=== PATIENT | female | born 2000 | race Caucasian/White ===

== ENCOUNTER 2018-05-15 10:58 | Emergency (ER) | payer SELFPAY ==
--- NOTE | 2018-05-15 11:16 | ED ---
Breast Complaint - HPI Summary HPI Summary: 17 year old female presents with bilateral breast tenderness and upper back pain for past 5-7 days. States pain is constant. Describes as "ache and tender to touch". Non-radiating. Denies aggravating or alleviating factors. She has noted a small "pimple" to the underside of her left breast otherwise denies any lumps or masses. LMP 2 weeks ago. She is on OBC and also uses condoms consistently. States she took a home test 2 days ago which was negative. Denies fever, chills, erythema of the breasts, nipple discharge, chest pain, shortness of breath, abdominal pain, nausea, or vomiting. - History of Current Complaint Hx Obtained From: Patient Breast Chief Complaint: Pain - Bilateral upper breast and upper back pain Onset/Duration: Started Days Ago Timing: Constant Breast Pain Aggravating Factors: Nothing Breast Pain Alleviating Factors: Nothing Breast Associated Signs/Symptoms: Negative - Allergy/Home Medications Allergies/Adverse Reactions: Allergies Allergy/AdvReac Type Severity Reaction Status Date / Time codeine Allergy Vomiting Verified 05/15/18 11:14 Home Medications: Home Medications Norethindrone [Elaina] 0.35 mg PO DAILY 05/15/18 [History Confirmed 05/15/18] PMH/Surg Hx/FS Hx/Imm Hx Previously Healthy: Yes - Denies significant PMH Infectious Disease History: No Infectious Disease History: Denies: Traveled Outside the [place] in Last 30 Days - Family History Known Family History: Positive: Non-Contributory - Social History Occupation: Student Lives: Dormitory/Roommates Review of Systems Negative: Fever, Chills Negative: Sore Throat, Nasal Discharge Negative: Palpitations, Chest Pain Negative: Shortness Of Breath, Cough Negative: Abdominal Pain, Vomiting, Nausea Skin: Negative All Other Systems Reviewed And Are Negative: Yes Physical Exam - Summary Physical Exam Summary: GENERAL APPEARANCE: Well developed, well nourished, alert and cooperative, and appears to be in no acute distress. NECK: Neck supple, non-tender without lymphadenopathy. CARDIAC: Normal S1 and S2. No S3, S4 or murmurs. Rhythm is regular. There is no peripheral edema, cyanosis or pallor. Extremities are warm and well perfused. Capillary refill is less than 2 seconds. LUNGS: Clear to auscultation without rales, rhonchi, wheezing or diminished breath sounds. CHEST: No chest deformity. Tenderness across the upper chest with palpation. BREAST: Bilateral breasts symmetric with normal contours. Single, superficial, erythematous, papular lesion to the inferior left breast. No dimpling, nodules, masses, nipple discharge, or axillary lymphadenopathy. ABDOMEN: Positive bowel sounds. Soft, nondistended, nontender. No guarding or rebound. No masses or hepatosplenomegally. MUSKULOSKELETAL: ROM intact to all extremities. Normal muscular development. Normal gait. BACK: Examination of the spine reveals normal gait and posture, no spinal deformity, decreased range of motion or muscular spasm. Mild soft tissue tenderness of the upper thoracic back. EXTREMITIES: No significant deformity or joint abnormality. No edema. Peripheral pulses intact. NEUROLOGICAL: Strength and sensation symmetric and intact throughout. SKIN: Skin normal color, texture and turgor with no lesions or eruptions. Triage Information Reviewed: Yes Vital Signs On Initial Exam: Initial Vitals Temp Pulse Resp BP Pulse Ox 99 F 94 20 153/84 95 05/15/18 10:59 05/15/18 10:59 05/15/18 10:59 05/15/18 10:59 05/15/18 10:59 Vital Signs Reviewed: Yes Diagnostics - Vital Signs Vital Signs Temp Pulse Resp BP Pulse Ox 05/15/18 10:59 99 F 94 20 153/84 95 - Laboratory Lab Statement: Any lab studies that have been ordered have been reviewed, and results considered in the medical decision making process. Breast Pain Course/Dx - Course Course Of Treatment: 17 year old female presents with bilateral breast tenderness and upper back pain for past 5-7 days. States pain is constant. Describes as "ache and tender to touch". Non-radiating. Denies aggravating or alleviating factors. She has noted a small "pimple" to the underside of her left breast otherwise denies any lumps or masses. LMP 2 weeks ago. She is on OBC and also uses condoms consistently. States she took a home test 2 days ago which was negative. Denies fever, chills, erythema of the breasts, nipple discharge, chest pain, shortness of breath, abdominal pain, nausea, or vomiting. Afebrile. VSS. Well appearing adult female in no acute distress. Exam unremarkable except for some upper chest wall and upper back soft tissue tenderness. Suspect symptoms are musculoskeletal in origin. Recommending conservative treatment with OTC NSAIDs. Patient is to follow up with [facility] in 7 days if symptoms persist. Warning symptoms reviewed with patient. Verbalizes understanding and agrees with POC. - Diagnoses Provider Diagnoses: Chest wall pain, Upper back pain Discharge - Sign-Out/Discharge Documenting (check all that apply): Patient Departure - Discharge Plan Condition: Stable Disposition: HOME Patient Education Materials: Back Pain (ED), Chest Wall Pain (ED) Referrals: [facility] - Aramis LAM [Primary Care Provider] - 7 Days (If no improvement in symptoms.) Additional Instructions: The breast exam performed in the emergency room today did not reveal any concerning lumps, masses, or swollen lymph nodes. I suspect that your pain is musculoskeletal. Take over the counter ibuprofen (Advil, Motrin) or naproxen (Aleve) according to directions as needed for pain. Follow up with [facility] if your symptoms persist. Return to the emergency room if you develop fever greater than 100.5 F, redness or swelling of the breasts, discharge from the nipples, have worsening chest pain, difficulty breathing, abdominal pain, persistent vomiting, or any worsening of symptoms. - Billing Disposition and Condition Condition: STABLE Disposition: Home
[2018-05-15 11:47] VITALS: BP 132/79
== END 2018-05-15 11:46 | disposition home or self-care (01) ==
LOC: ED 10:58
DX: R07.89 Other chest pain (principal); M54.89 Other dorsalgia; Z88.5 Allergy status to narcotic agent
CPT/HCPCS: 99282

== ENCOUNTER 2019-04-02 20:00 | Emergency (ER) | payer OTHER ==
[2019-04-02] MEDS ORDERED: Ondansetron INJ* 2 MG/ML VIAL IV ONE (20:13)
[2019-04-02] MEDS ORDERED: Ketorolac INJ* 15 MG/ML 1 ML VIAL IV ONE (20:13)
[2019-04-02] MEDS ORDERED: NS 0.9% 1000 ML** 1,000 ML IV ONE ×2 (20:13→21:36)
[2019-04-02] MEDS ORDERED: Ketorolac INJ* 30 MG/ML 1 ML VIAL IM ONE (20:22)
--- NOTE | 2019-04-02 20:36 | ED ---
GI/ HPI - HPI Summary HPI Summary: 18 year old female presents with lower abdominal pain today. States that is intermittent. She states been changing locations. States sometimes is sharp and sometimes is crampy. She's never had this pain before. Did have an episode diarrhea. No nausea vomiting. No recent antibiotic use. She doesn't take anything for his symptoms. States pain is currently 6 out of 10. She admits to urgency but no dysuria. Had a negative urine and at urgent care. Denies any abnormal vaginal discharge. Patient is sexually active. No previous abdominal surgeries. Has a history of asthma. - History of Current Complaint Chief Complaint: EDAbdPain Time Seen by Provider: 04/02/19 20:13 Stated Complaint: LOW ABD PAIN PER PT Pain Intensity: 7 - Allergy/Home Medications Allergies/Adverse Reactions: Allergies Allergy/AdvReac Type Severity Reaction Status Date / Time codeine Allergy Vomiting Verified 04/02/19 20:06 Home Medications: Home Medications Dicyclomine HCl 15 ml PO DAILY 04/02/19 [History Confirmed 04/02/19] Montelukast Sodium TAB* [Singulair TAB*] 10 mg PO DAILY PRN 04/02/19 [History Confirmed 04/02/19] PMH/Surg Hx/FS Hx/Imm Hx Endocrine/Hematology History: Denies: Hx Anticoagulant Therapy Respiratory History: Denies: Hx Asthma Infectious Disease History: No Infectious Disease History: Denies: Traveled Outside the [place] in Last 30 Days - Family History Known Family History: Positive: Non-Contributory - Social History Alcohol Use: Occasionally Substance Use Type: Reports: None Smoking Status (MU): Never Smoked Tobacco Review of Systems Negative: Fever Negative: Chest Pain Negative: Shortness Of Breath Positive: Abdominal Pain, Diarrhea. Negative: Vomiting, Nausea All Other Systems Reviewed And Are Negative: Yes Physical Exam Triage Information Reviewed: Yes Vital Signs On Initial Exam: Initial Vitals Temp Pulse Resp BP Pulse Ox 99.1 F 94 18 137/93 99 04/02/19 20:02 04/02/19 20:02 04/02/19 20:02 04/02/19 20:02 04/02/19 20:02 Vital Signs Reviewed: Yes Appearance: Positive: Well-Appearing Skin: Positive: Warm, Dry Head/Face: Positive: Normal Head/Face Inspection Eyes: Positive: Normal, Conjunctiva Clear ENT: Positive: Pharynx normal Respiratory/Lung Sounds: Positive: Clear to Auscultation, Breath Sounds Present Cardiovascular: Positive: Normal, RRR Abdomen Description: Positive: Soft, Other: - tenderness periumbilically Bowel Sounds: Positive: Present Musculoskeletal: Positive: Normal Neurological: Positive: Normal Psychiatric: Positive: Normal Procedures - Sedation Patient Received Moderate/Deep Sedation with Procedure: No Diagnostics - Vital Signs Vital Signs Temp Pulse Resp BP Pulse Ox 04/02/19 20:02 99.1 F 94 18 137/93 99 - Laboratory Result Diagrams: 04/02/19 20:24 04/02/19 20:24 Lab Statement: Any lab studies that have been ordered have been reviewed, and results considered in the medical decision making process. - Ultrasound No standard instances Ultrasound Interpretation Completed By: Radiologist Summary of Ultrasound Findings: IMPRESSION: 1. Endometrial stripe thickness is 7 mm and appears otherwise unremarkable. 2. There is a simple appearing cyst in the left ovary measuring a maximum of 4.9 cm. Re-Evaluation - Re-Evaluation First Eval Change: Improved Comment: pain mostly LLQ now GIGU Course/Dx - Course Course Of Treatment: 18 year old female presents with lower abdominal pain today. States that is intermittent. She states been changing locations. States sometimes is sharp and sometimes is crampy. She's never had this pain before. Did have an episode diarrhea. No nausea vomiting. No recent antibiotic use. She doesn't take anything for his symptoms. States pain is currently 6 out of 10. She admits to urgency but no dysuria. Had a negative urine and at urgent care. Denies any abnormal vaginal discharge. Patient is sexually active. No previous abdominal surgeries. Has a history of asthma. on exam tenderness periumbilical. nontender RLQ. wbc normal. crp normal. low suspicion for appenditis. u/s shows left ovarian cyst. told to take tyenlol or ibuprofen. patient understand and agrees with plan. - Diagnoses Differential Diagnoses - Female: Appendicitis, Gastroenteritis (Viral), Ovarian Cyst Provider Diagnoses: Ovarian cyst Discharge ED - Sign-Out/Discharge Documenting (check all that apply): Patient Departure - Discharge Plan Condition: Good Disposition: HOME Patient Education Materials: Ovarian Cyst (ED) Referrals: [facility] - Aramis LAM [Primary Care Provider] - Additional Instructions: Take Tylenol or ibuprofen every 6 hours for pain Apply heat Follow up with [facility] Return to ED if develop any new or worsening symptoms - Billing Disposition and Condition Condition: GOOD Disposition: Home
[2019-04-02 20:41] LABS: ABS Basophils 0.1 10^3/ul (0-0.2); ABS Eosinophils 0.1 10^3/ul (0-0.6); ABS Lymphocytes 2.1 10^3/ul (1.0-4.8); ABS Monocytes 0.4 10^3/ul (0-0.8); ABS Neutrophils 5.8 10^3/ul (1.5-7.7); Eosinophil % 1.5 %; Hematocrit 39 % (35-47); Hemoglobin 13.2 g/dL (12.0-16.0); Lymphocyte % 25.1 %; Mean Corpuscular HGB Conc 34 g/dL (31-36); Mean Corpuscular Hemoglobin 29 pg (27-31); Mean Corpuscular Volume 86 fL (80-97); Mean Platelet Volume 9.6 fL (7.4-10.4); Nucleated Red Blood Cells % 0.1; Platelet Count 309 10^3/uL (150-450); Red Blood Count 4.55 10^6 /uL (3.70-4.87); Red Cell Distribution Width 13 % (10-15); White Blood Count 8.4 10^3/uL (3.5-10.8)
[2019-04-02 21:01] LABS: ALT 18 U/L (7-52); AST 20 U/L (13-39); Albumin 4.5 g/dL (3.2-5.2); Albumin/Globulin Ratio 1.7 (1-3); Alkaline Phosphatase 50 U/L (34-104); Anion Gap 8 mmol/L (2-11); BUN/Creatinine Ratio 10.3 (8-20); Blood Urea Nitrogen 7 mg/dL (6-24); CO2 Carbon Dioxide 21 mmol/L (22-32); Calcium 9.3 mg/dL (8.6-10.3); Chloride 108 mmol/L (101-111); EGFR African American 133.5 (>60); EGFR Non-African American 110.3 (>60); Globulin 2.7 g/dL (2-4); Glucose 94 mg/dL (70-100); Sodium 137 mmol/L (135-145); Total Protein 7.2 g/dL (6.4-8.9)
[2019-04-02 21:06] LABS: HCG Pregnancy < 0.60 mIU/mL
[2019-04-02 22:03] LABS: Urine Appearance Cloudy; Urine Bacteria Absent (Absent); Urine Bilirubin Negative (Negative); Urine Blood 2+ (Negative); Urine Color Yellow; Urine Glucose Negative (Negative); Urine Ketones Trace (Negative); Urine Nitrite Negative (Negative); Urine Protein Negative (Negative); Urine Red Blood Cell 2+(6-10/hpf) (Absent); Urine Specific Gravity 1.023 (1.010-1.030); Urine Squamous Epithelial Cell Present (Absent); Urine Urobilinogen Negative (Negative); Urine White Blood Cell Absent (Absent)
[2019-04-03 01:16] VITALS: BP 130/88
== END 2019-04-03 01:10 | disposition home or self-care (01) ==
LOC: ED 20:00
DX: N83.202 Unspecified ovarian cyst, left side (principal); Z79.899 Other long term (current) drug therapy; Z88.5 Allergy status to narcotic agent
CPT/HCPCS: 36415; 76856; 80053; 81003; 81015; 83605; 83690; 84702; 85025; 86140; 96361; 96372; 96374; 96375; 99283; J1885

== ENCOUNTER 2019-04-27 22:58 | Emergency (ER) | payer OTHER ==
--- NOTE | 2019-04-27 23:11 | ED ---
Shortness of Breath - HPI Summary HPI Summary: 18-year-old female with significant past medical history of asthma which is well controlled with albuterol rescue inhaler presented to the emergency department with a chief complaint of shortness of breath 3 days. She states 3 days ago she was cleaning a bathtub with bleach and then shortly after began having mild shortness breath and chest pain. She was recently she had become afraid of the symptoms and decided to come into the emergency department. States for the last few days she has developed a dry cough and "chest tightness " in the upper sternum. She states she used her albuterol inhaler and allergy medication with mild relief of symptoms. She states she stopped taking her oral contraceptives one month ago. She denies recent travel, surgery, immobilization. Family history is noncontributory. She admits to light alcohol use but denies tobacco or recreational drug use. She denies fever, abdominal pain, pain with urination, joint pain, rash, headache, lightheadedness. - History of Current Complaint Chief Complaint: EDShortnessOfBreath Time Seen by Provider: 04/27/19 23:11 Hx Obtained From: Patient Onset/Duration: Gradual Onset, Lasting Days Timing: Constant Current Severity: Mild Dyspnea At: Exertion Aggravating Factors: Movement Alleviating Factors: Bronchodilators, OTC Meds Associated Signs & Symptoms: Cough (Nonproductive), Chest Pain w/Cough - Allergy/Home Medications Allergies/Adverse Reactions: Allergies Allergy/AdvReac Type Severity Reaction Status Date / Time codeine Allergy Vomiting Verified 04/27/19 23:03 PMH/Surg Hx/FS Hx/Imm Hx Endocrine/Hematology History: Denies: Hx Anticoagulant Therapy Respiratory History: Denies: Hx Asthma, Hx Pulmonary Embolism Infectious Disease History: No Infectious Disease History: Denies: Traveled Outside the [place] in Last 30 Days - Family History Known Family History: Positive: Non-Contributory - Social History Alcohol Use: Occasionally Substance Use Type: Reports: None Smoking Status (MU): Never Smoked Tobacco Review of Systems Constitutional: Negative Positive: Chest Pain Positive: Shortness Of Breath, Cough Gastrointestinal: Negative Genitourinary: Negative Skin: Negative Neurological: Negative Psychological: Normal All Other Systems Reviewed And Are Negative: Yes Physical Exam Triage Information Reviewed: Yes Vital Signs On Initial Exam: Initial Vitals Temp Pulse Resp BP Pulse Ox 97.9 F 93 15 142/88 98 04/27/19 22:59 04/27/19 22:59 04/27/19 22:59 04/27/19 22:59 04/27/19 22:59 Vital Signs Reviewed: Yes Appearance: Positive: Well-Appearing, No Pain Distress, Well-Nourished Skin: Positive: Warm, Skin Color Reflects Adequate Perfusion Head/Face: Positive: Normal Head/Face Inspection, Temporal Artery Tenderness Eyes: Positive: EOMI, ASHLEY ENT: Positive: Hearing grossly normal Respiratory/Lung Sounds: Positive: Clear to Auscultation, Breath Sounds Present , Other - patient is in no acute respiratory distress. She speaks in full and broken sentences with ease. She is 90s and accessory muscles with respiratory effort. There is no audible wheezing or stridor. Auscultation throughout precordium reveals no adventitious lung sounds. Cardiovascular: Positive: RRR, S1, S2 Musculoskeletal: Positive: Normal Neurological: Positive: Sensory/Motor Intact, Alert, Oriented to Person Place, Time, Normal Gait, Speech Normal Psychiatric: Positive: Normal AVPU Assessment: Alert Procedures - Sedation Patient Received Moderate/Deep Sedation with Procedure: No Diagnostics - Vital Signs Vital Signs Temp Pulse Resp BP Pulse Ox 04/27/19 22:59 97.9 F 93 15 142/88 98 - Laboratory Result Diagrams: 04/27/19 23:36 04/27/19 23:36 Lab Statement: Any lab studies that have been ordered have been reviewed, and results considered in the medical decision making process. Course/Dx - Course Course Of Treatment: Patient was evaluated in the emergency department for shortness of breath. The patient was seen and evaluated. She was given 1 L of lactated Ringer's shortly after arrival to the emergency department which resolved her tachycardia. EKG and laboratory studies were ordered for the evaluation of this patient. EKG showed normal sinus rhythm at a rate of 83 bpm. Normal MS and QTc intervals. No ST elevation or signs of acute myocardial infarction was appreciated. No evidence of Brugada or WPW. laboratory studies showed no leukocytosis and no signs of anemia. D-dimer was negative was not indicative of possible pulmonary embolism. Venous blood gas showed normal pH, normal PCO2 and normal bicarbonate levels. CBC showed no electrolyte abnormalities, normal renal and hepatic function. Beta hCG Quant was negative for . Her wells score was 1.5 and she was considered low risk for pulmonary embolism. Her laboratory studies and EKG are suggest there is no acute pathology causing her symptoms. It is likely that her symptoms are due to chemical exacerbation of her asthma, which is otherwise benign at this time. She is to follow-up with her primary care doctor in 1-2 days for further evaluation and management of her symptoms. She was told to return to the emergency department if she developed any new or worsening symptoms. She is afebrile vitals are stable to discharge. - Diagnoses Differential Diagnosis/HQI/PQRI: Positive: Airway Obstruction, Airway Foreign Body, Asthma, Chest Wall Pain, [place], Pneumonia, Pneumothorax, Pulmonary Embolism, Tuberculosis Provider Diagnoses: Dyspnea Discharge ED - Sign-Out/Discharge Documenting (check all that apply): Patient Departure - Discharge Plan Condition: Stable Disposition: HOME Patient Education Materials: Shortness of Breath (ED) Referrals: [facility] - Aramis LAM [[employer], [employer], OTHER] - Additional Instructions: You were seen in the emergency department today for shortness of breath. Your lab results and EKG showed no evidence of acute medical problems such as heart attack or pulmonary embolism. It is likely your symptoms are due to chemical exacerbation of your asthma. The symptoms will resolve on their own in time. Please return to the emergency department immediately if you develop any new or worsening symptoms. Return to activity as tolerated. Follow-up with your primary care provider or school health clinic in one to 2 days for reassessment of your symptoms. Continue taking your allergy medication as needed. - Billing Disposition and Condition Condition: STABLE Disposition: Home
[2019-04-27] MEDS ORDERED: Lactated Ringers 1000 ML Bag* 1,000 ML IV ONE (23:45)
[2019-04-27 23:47] LABS: ABS Basophils 0.1 10^3/ul (0-0.2); ABS Eosinophils 0.1 10^3/ul (0-0.6); ABS Lymphocytes 1.8 10^3/ul (1.0-4.8); ABS Monocytes 0.3 10^3/ul (0-0.8); ABS Neutrophils 3.2 10^3/ul (1.5-7.7); Eosinophil % 2.3 %; Hematocrit 40 % (35-47); Hemoglobin 13.3 g/dL (12.0-16.0); Lymphocyte % 32.6 %; Mean Corpuscular HGB Conc 33 g/dL (31-36); Mean Corpuscular Hemoglobin 29 pg (27-31); Mean Corpuscular Volume 87 fL (80-97); Mean Platelet Volume 9.7 fL (7.4-10.4); Nucleated Red Blood Cells % 0.1; Platelet Count 284 10^3/uL (150-450); Red Blood Count 4.58 10^6 /uL (3.70-4.87); Red Cell Distribution Width 13 % (10-15); White Blood Count 5.4 10^3/uL (3.5-10.8)
[2019-04-28 00:04] LABS: ALT 13 U/L (7-52); AST 17 U/L (13-39); Albumin 4.6 g/dL (3.2-5.2); Albumin/Globulin Ratio 1.8 (1-3); Alkaline Phosphatase 48 U/L (34-104); Anion Gap 8 mmol/L (2-11); BUN/Creatinine Ratio 12.7 (8-20); Blood Urea Nitrogen 10 mg/dL (6-24); CO2 Carbon Dioxide 26 mmol/L (22-32); Calcium 9.9 mg/dL (8.6-10.3); Chloride 106 mmol/L (101-111); EGFR African American 112.3 (>60); EGFR Non-African American 92.8 (>60); Globulin 2.6 g/dL (2-4); Glucose 132 mg/dL (70-100); Sodium 140 mmol/L (135-145); Total Protein 7.2 g/dL (6.4-8.9)
[2019-04-28 00:11] LABS: HCG Pregnancy < 0.60 mIU/mL
[2019-04-28 01:50] VITALS: BP 124/63
== END 2019-04-28 01:20 | disposition home or self-care (01) ==
LOC: ED 22:58
DX: R06.00 Dyspnea, unspecified (principal); R05 Cough; R07.9 Chest pain, unspecified; R06.02 Shortness of breath
CPT/HCPCS: 36415; 80053; 82803; 84484; 84702; 85025; 85379; 93005; 96360; 96361; 99282

== ENCOUNTER 2019-05-26 22:45 | Emergency (ER) | payer OTHER ==
[2019-05-27] MEDS ORDERED: Acetaminophen TAB* 325 MG PO ONE (00:27)
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
[2019-05-27 01:06] VITALS: BP 113/72
== END 2019-05-27 00:53 | disposition home or self-care (01) ==
LOC: ED 22:45
DX: R51 Headache (principal); R11.0 Nausea; M62.838 Other muscle spasm; M54.6 Pain in thoracic spine; M54.2 Cervicalgia; V03.10XA Pedestrian on foot injured in collision with car, pick-up truck or van in traffic accident, initial encounter; Y93.01 Activity, walking, marching and hiking; Y92.410 Unspecified street and highway as the place of occurrence of the external cause; Z88.5 Allergy status to narcotic agent
CPT/HCPCS: 99282